=== PATIENT | female | born 1995 | race Caucasian/White ===

== ENCOUNTER → 2018-01-31 | Outpatient (CLI) | payer OTHER | END | disposition home or self-care (01) | LOC: RAD 12:34 | DX: S82.42 Transverse fracture of shaft of fibula (principal) ==

== ENCOUNTER 2020-04-04 09:48 | Outpatient (CLI) | payer OTHER | END 2020-04-04 10:03 | disposition HB | LOC: RAD 09:48 | PROVIDERS: ATTEND Orthopaedic Surgery | DX: T84.84XA Pain due to internal orthopedic prosthetic devices, implants and grafts, initial encounter (principal) ==

== ENCOUNTER → 2022-03-09 | Outpatient (CLI) | payer OTHER | END | disposition home or self-care (01) | LOC: RAD 15:37 | PROVIDERS: ATTEND Orthopaedic Surgery | DX: R22.32 Localized swelling, mass and lump, left upper limb (principal) ==

== ENCOUNTER 2023-12-27 10:12 | Outpatient (CLI) | payer OTHER | END 2023-12-27 10:22 | disposition home or self-care (01) | LOC: RAD 10:12 | PROVIDERS: ATTEND Orthopaedic Surgery | DX: S52.571 Other intraarticular fracture of lower end of right radius (principal); M79.631 Pain in right forearm ==

== ENCOUNTER 2024-02-08 10:18 | Outpatient (CLI) | payer OTHER | END 2024-02-08 10:25 | disposition home or self-care (01) | LOC: RAD 10:18 | PROVIDERS: ATTEND Orthopaedic Surgery | DX: S52.571D Other intraarticular fracture of lower end of right radius, subsequent encounter for closed fracture with routine healing (principal) ==